=== PATIENT | male | born 1990 | race African-American/Black ===

== ENCOUNTER 2016-05-13 02:04 | Emergency (ER) ==
--- NOTE | 2016-05-13 02:36 | PROVIDER DOCUMENTATION ---
[facility] General - General Source: patient - History of Present Illness-EENT General [facility] Location: reports: nose Quality of Pain: reports: aching Severity: reports: mild Onset/Duration: reports: last week Timing: reports: still present Associated Symptoms: reports: nasal congestion/drainage. denies: fever - Nose Nose Problem Symptoms: other (sinus congestion) <Janae Garcia - Last Filed: 05/13/16 02:36> <Isaak Wong - Last Filed: 05/13/16 03:02> - General Chief Complaint: General Adult Stated Complaint: GENERAL Time Seen by Provider: 05/13/16 02:09 Allergies/Adverse Reactions: Patient Allergies Allergy/AdvReac Type Severity Reaction Status Date / Time No Known Allergies Allergy Verified 03/16/15 17:08 Home Medications: Home Medication List Medication Instructions Recorded Confirmed Last Taken Type Amoxicillin 875 mg PO Q8HR #20 tablet 05/13/16 Unknown Rx Methylprednisolone [Medrol Dosepak] 4 mg PO DIRECTED #1 package 05/13/16 Unknown Rx - History of Present Illness-EE General Nature of Presenting Problem: 25 Y/O M presents to ED with General Adult. Pt states that he has had 1 week of sinus problems, and within the past 24 hours and had an increase in body aches and a subjective fever with congestion. PT states he works at [employer]. (Janae Garcia) Review of Systems - Adult - REVIEW OF SYSTEMS - ADULT Constitutional: reports: fever. denies: chills Eyes: reports: no symptoms reported Ears, Nose, Mouth & Throat: reports: sinus problem Cardiovascular: reports: no symptoms reported Respiratory: reports: no symptoms reported Gastrointestinal: reports: no symptoms reported Genitourinary: reports: no symptoms reported Musculoskeletal: reports: muscle aches Integumentary: reports: no symptoms reported Neurological: reports: no symptoms reported Psychiatric: reports: no symptoms reported Endocrine: reports: no symptoms reported Hematologic/Lymphatic: reports: no symptoms reported Allergic/Immunologic: reports: no symptoms reported All Other Systems: Reviewed and Negative <Janae Garcia - Last Filed: 05/13/16 02:36> Past History - Adult - PAST MEDICAL HISTORY-ADULT Review of Records: reports: Old Records Reviewed, Nursing Assessment Review, Medications Reviewed, Social history reviewed & non-contributory. Major Childhood Illnesses: reports: denies history - IMMUNIZATION STATUS Childhood Immunizations: See Nurse Assessment Flu Vaccine: See Nurse Assessment - SOCIAL HISTORY Smoking: other (black and mild ) Substance Use: marijuana Living Situation: family <Janae Garcia - Last Filed: 05/13/16 02:36> Physical Exam- EENT - Physical Exam EENT Initial Vital Signs Reviewed: Yes General Appearance: appears well, alert, no apparent distress Eye Exam: bilateral eye: normal inspection, PERRL, EOMI Ear Exam: bilateral ear: auricle normal, canal normal, TM normal Nasal Exam: other (nasal congestion) Throat Exam: other (maxillary and frontal tenderness) Neck: non-tender, full range of motion, supple, normal inspection Respiratory: chest non-tender, lungs clear, normal breath sounds Cardiovascular: normal peripheral pulses, regular rate, rhythm Abdominal Exam: normal bowel sounds, non tender, soft Lymphatic: no adenopathy Back Exam: normal inspection, no CVA tenderness, no vertebral tenderness Extremity: normal range of motion, non-tender, normal gait Integumentary: normal color, normal turgor, warm/dry 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, grossly normal Psych/Mental Status: normal mood/affect, normal thought content, normal thought process, oriented x 3 <Janae Garcia - Last Filed: 05/13/16 02:36> Progress <Janae Garcia - Last Filed: 05/13/16 02:36> <Isaak Wong M - Last Filed: 05/13/16 03:02> - PLAN OF CARE/RESULTS Progress/Plan/Lab Results: Orders Category Date Time Status Finger Stick Blood Sugar (ED) DIRECTED Care 05/13/16 02:28 Active INFLUENZA SCREEN A/B Stat Lab 05/13/16 02:28 Ordered Vital Signs - 24 hr 05/13/16 02:21 Temperature 98.3 F Pulse Rate 107 H Respiratory 18 Rate Blood Pressure 147/75 O2 Sat by Pulse 99 Oximetry (Janae Garcia) Departure - Departure Time of Disposition Order: 02:35 Certified Medical Emergency: Emergent <Janae Garcia - Last Filed: 05/13/16 02:36> - Departure Time of Disposition Order: 03:01 Certified Medical Emergency: Urgent <Isaak Wong - Last Filed: 05/13/16 03:02> - Departure DIAGNOSIS: Sinusitis Qualifiers: Sinusitis location: unspecified location Chronicity: unspecified Qualified Code (s): J32.9 - Chronic sinusitis, unspecified URI (upper respiratory infection) Qualifiers: URI type: unspecified URI Qualified Code(s): J06.9 - Acute upper respiratory infection, unspecified Disposition: HOME 01 Condition: Stable Additional Instructions: ED Follow Up Instructions: You have been treated by a care provider in the Emergency Department. These instructions are being provided to you so you can have an understanding of how to care for yourself upon discharge. Upon discharge from the Emergency Department, you are responsible for making arrangements for follow-up care by a physician of your choice. Take all prescribed medications as directed. Return to the Emergency Department immediately for any new or worsening symptoms. You may call the Physician Referral phone number at [phone] to obtain a list of Physicians who are taking new patients. Prescriptions: Amoxicillin 875 mg PO Q8HR #20 tablet Methylprednisolone [Medrol Dosepak] 4 mg PO DIRECTED #1 package Referrals: None,PCP [Primary Care Provider] - Attestation - Scribe Verification/Attestation Scribe:: Janae Garcia Acting as Scribe for:: Isaak Wong Scribe documention review:: This chart was documented by a scribe and accurately reflects the service the provider performed and the decisions made by the provider. <Janae Garcia - Last Filed: 05/13/16 02:36> Physician Attestation
[2016-05-13] MEDS ORDERED: ULTRAM PO ONE (03:02)
[2016-05-13 03:25] VITALS: BP 137/66
== END 2016-05-13 03:28 | disposition home or self-care (01) ==
LOC: ED 02:04
DX: J32.9 Chronic sinusitis, unspecified (principal); J06.9 Acute upper respiratory infection, unspecified; R09.81 Nasal congestion; M79.1 Myalgia; R50.9 Fever, unspecified
CPT/HCPCS: 82948; 87804